=== PATIENT | male | born 1975 | race Caucasian/White ===

== ENCOUNTER 2023-01-24 14:47 | Outpatient (CLI) | payer BC | END 2023-01-24 14:48 | disposition home or self-care (01) | LOC: RAD 14:47 | PROVIDERS: ATTEND Student in an Organized Health Care Education/Training Program | DX: J86.9 Pyothorax without fistula (principal); J94.8 Other specified pleural conditions | CPT/HCPCS: 71046 ==

== ENCOUNTER 2023-03-10 08:07 | Outpatient (CLI) | payer BC | END 2023-03-10 08:08 | disposition home or self-care (01) | LOC: RAD 08:07 | PROVIDERS: ATTEND Internal Medicine Critical Care Medicine | DX: R06.00 Dyspnea, unspecified (principal) | CPT/HCPCS: 71046 ==